=== PATIENT | female | born 1995 | race Caucasian/White ===

== ENCOUNTER 2018-11-02 23:34 | Emergency (ER) | payer OTHER ==
[2018-11-02 23:39] VITALS: BP 143/81; PULSE 76; TEMP 98.2; BMI 33.2
[2018-11-03 01:18] LABS: BASO % 0.6 % (0-2.0); HEMATOCRIT 35.8 % (32.4-45.2); HEMOGLOBIN 12.3 GM/dL (10.7-15.3); MCH 29.7 pg (25.7-33.7); MCHC 34.3 g/dl (32.0-36.0); MEAN CELL VOLUME 86.5 fl (80-96); MEAN PLT VOLUME 8.4 fl (7.5-11.1); MONO % 7.8 % (3.8-10.2); NEUT % 55.6 % (42.8-82.8); PLATELET COUNT 274 K/MM3 (134-434); RBC 4.13 M/mm3 (3.60-5.2); WHITE BLOOD COUNT 7.4 K/mm3 (4.0-10.0)
--- NOTE | 2018-11-03 01:43 | PDOC ---
Documentation entered by Mark Fernández SCRIBE, acting as scribe for Adriana Interiano MD. Adriana Interiano MD: This documentation has been prepared by the Pradeep castellano Xhesika, SCRIBE, under my direction and personally reviewed by me in its entirety. I confirm that the documentation accurately reflects all work, treatment, procedures, and medical decision making performed by me. Attending Attestation - Resident Resident Name: BrianpatitoHenry - ED Attending Attestation I have performed the following: I have examined & evaluated the patient, The case was reviewed & discussed with the resident, I agree w/resident's findings & plan - HPI HPI: 11/03/18 00:56 The patient is a 23 year old female, , 3 months , with no significant past medical history who presents to the ED with onset vaginal bleeding. The patient states she is endorsing some back pain. The patient states she had preeclampsia that resulted in a last . The patient denies chest pain, shortness of breath or dizziness. The patient denies fever, chills, nausea, diarrhea or constipation. The patient denies dysuria, frequency, urgency. Allergy: NKDA Surgical History: Social History: None reported - Physicial Exam PE: 11/03/18 00:59 GENERAL: The patient is in no acute distress. HEAD: Normal with no signs of trauma. EYES: PERRLA, EOMI, sclera anicteric, conjunctiva clear. ENT: Ears normal, nares patent, oropharynx clear without exudates. Moist mucous membranes. NECK: Normal range of motion, supple without lymphadenopathy, JVD, or masses. LUNGS: Breath sounds equal, clear to auscultation bilaterally. No wheezes, and no crackles. HEART:Regular rate and rhythm, normal S1 and S2 without murmur, rub or gallop. ABDOMEN: Soft, nontender, normoactive bowel sounds. No guarding, no rebound. No masses palpable. EXTREMITIES: Normal range of motion, no edema. No clubbing or cyanosis. No erythema, or tenderness. PELVIC: (+) cervical os closed. (+) small amount of blood seen. NEUROLOGICAL: Cranial nerves II through XII grossly intact. Normal speech. No focal neurological deficits. MUSCULOSKELETAL: Back non-tender to palpation, no CVA tenderness SKIN: Warm, Dry, normal turgor, no rashes or lesions noted. - Medical Decision Making 11/03/18 02:27 Patient Name: SARAH MILLER THIS IS A PRELIMINARY REPORT FROM [facility] DATE OF SERVICE: 2018-11-03 01:09:17 IMAGES: 44 EXAM: Ultrasound and pelvic duplex HISTORY: Bleeding COMPARISON: None. FINDINGS: Ultrasound :Uterus is anteverted and measures 12.7centimeters in length. There is a single live IUP with estimated gestational age of 12weeks and zerodays. There is a normal heart rate of 171beats per minute. There is no subchorionic bleed. The right ovary measures 2.2centimeters in length and appears normal. The left ovary measures 5 pointcentimeters in length and appears normal. There is no significant free fluid. Pelvic duplex: There is normal arterial and venous flow in both ovaries. IMPRESSION: Live IUP with estimated age 12 weeks zero days without definite abnormalities. 11/03/18 05:23 Stable for d/c home 11/03/18 05:23 UA not sent; no dysuria and pt will follow with her TERMITE HELPER
[2018-11-03 01:47] LABS: INR 0.96 (0.83-1.09); PROTHROMBIN TIME (PATIENT) 11.3 SEC (9.7-13.0)
[2018-11-03 02:15] LABS: ALBUMIN 3.8 g/dl (3.4-5.0); BILIRUBIN,TOTAL 0.3 mg/dL (0.2-1); CALCIUM 8.7 mg/dL (8.5-10.1); CREATININE 0.3 mg/dL (0.55-1.3); POTASSIUM 3.6 mmol/L (3.5-5.1)
--- NOTE | 2018-11-03 02:30 | PDOC ---
History of Present Illness - General Chief Complaint: Vaginal Bleeding Stated Complaint: VAGINAL BLEEDING/3 MONTHS Time Seen by Provider: 11/03/18 00:11 History Source: Patient Exam Limitations: Language Barrier (Phone int used) - History of Present Illness Initial Comments: 11/03/18 02:31 Patient is a 23F who is 3 months by dates here today complaining of vaginal bleeding that started today and lasted for about thirty minutes. Patient has not had any care prior to today. Denies fevers, chills, nausea, vomiting. Denies abdominal pain, shortness of breath and chest pain. Denies vaginal pain, history of stds. Has not had prior ultrasound or medical care for this . Past History - Past Medical History Allergies/Adverse Reactions: Allergies Allergy/AdvReac Type Severity Reaction Status Date / Time No Known Allergies Allergy Verified 03/29/16 18:54 Home Medications: Ambulatory Orders Iron 1 tab PO DAILY 03/29/16 Vitamins (Sjr) - 1 tab PO DAILY 03/29/16 Ibuprofen [Motrin -] 600 mg PO QID #28 tablet 04/02/16 Asthma: No Cancer: No Cardiac Disorders: No COPD: No Diabetes: No HTN: No Seizures: No Thyroid Disease: No - Immunization History Immunization Up to Date: Yes - Suicide/Smoking/Psychosocial Hx Smoking History: Unknown if ever smoked Have you smoked in the past 12 months: No Information on smoking cessation initiated: No Hx Alcohol Use: No Drug/Substance Use Hx: No Hx Substance Use Treatment: No Review of Systems - Review of Systems Able to Perform ROS?: Yes Comments:: 11/03/18 02:32 GENERAL/CONSTITUTIONAL: No fever or chills. No weakness. HEAD, EYES, EARS, NOSE AND THROAT: No change in vision. No sore throat. CARDIOVASCULAR: No chest pain or shortness of breath RESPIRATORY: No cough, wheezing, or hemoptysis. GASTROINTESTINAL: No nausea, vomiting, diarrhea or constipation. GENITOURINARY: No dysuria, frequency, or change in urination. MUSCULOSKELETAL: No joint or muscle swelling or pain. No neck or back pain. SKIN: No rash NEUROLOGIC: No headache, vertigo, loss of consciousness, or change in strength/ sensation. HEMATOLOGIC/LYMPHATIC: No anemia, easy bleeding, or history of blood clots. *Physical Exam - Vital Signs Last Vital Signs Temp Pulse Resp BP Pulse Ox 98.2 F 76 16 143/81 100 11/02/18 23:36 11/02/18 23:36 11/02/18 23:36 11/02/18 23:36 11/02/18 23:36 - Physical Exam Comments: 11/03/18 02:33 GENERAL: Awake, alert, and fully oriented, in no acute distress PELVIC: Small amount of blood in vaginal vault, no cmt, no adnexal tenderness/ masses. HEAD: No signs of trauma, normocephalic, atraumatic EYES: PERRLA, EOMI, sclera anicteric, conjunctiva clear ENT: Auricles normal inspection, hearing grossly normal, nares patent, oropharynx clear without exudates. Moist mucosa NECK: Normal ROM, supple, no lymphadenopathy, JVD, or masses LUNGS: No distress, speaks full sentences, clear to auscultation bilaterally HEART: Regular rate and rhythm, normal S1 and S2, no murmurs, rubs or gallops, peripheral pulses normal and equal bilaterally. ABDOMEN: Nontender, normoactive bowel sounds. No guarding, no rebound. No masses EXTREMITIES: Normal inspection, Normal range of motion, no edema. No clubbing or cyanosis. NEUROLOGICAL: Cranial nerves II through XII grossly intact. Normal speech, normal gait, no focal sensorimotor deficits SKIN: Warm, Dry, normal turgor, no rashes or lesions noted. ED Treatment Course - LABORATORY CBC & Chemistry Diagram: 11/03/18 01:05 11/03/18 01:05 - ADDITIONAL ORDERS Additional order review: Laboratory Results 11/03/18 11/03/18 11/03/18 01:05 01:05 01:05 PT with INR 11.30 INR 0.96 Sodium 135 L Potassium 3.6 Chloride 109 H Carbon Dioxide 20 L Anion Gap 6 L BUN 9 Creatinine 0.3 L Est GFR (CKD-EPI)AfAm 187.05 Est GFR (CKD-EPI)NonAf 161.39 Random Glucose 85 Calcium 8.7 Total Bilirubin 0.3 AST 18 ALT 36 Alkaline Phosphatase 49 Total Protein 7.0 Albumin 3.8 Beta HCG, Quant 10458.4 Blood Type O POSITIVE Antibody Screen Negative 11/03/18 01:05 RBC 4.13 MCV 86.5 MCHC 34.3 RDW 14.0 D MPV 8.4 Neutrophils % 55.6 D Lymphocytes % 33.0 D Monocytes % 7.8 Eosinophils % 3.0 D Basophils % 0.6 - RADIOLOGY Radiology Studies Ordered: Category Date Time Status PELVIC / BLADDER US [US] Stat Ultrasound 11/03/18 00:36 Taken Medical Decision Making - Medical Decision Making 11/03/18 02:34 Patient is 23F here today with likely threatened . Vitals normal and stable. Will workup with cbc, cmp, type and screen, pt/inr, beta quant, us. CBC normal. CMP normal. Beta 40k US shows normal IUP at [id number], no abnormalities. Will discharge with return precautions and obgyn referral. *DC/Admit/Observation/Transfer Diagnosis at time of Disposition: Threatened - Discharge Dispostion Disposition: HOME Condition at time of disposition: Good Decision to Admit order: No - Referrals Referrals: Hedy Ornelas MD [Staff Physician] - - Patient Instructions Printed Discharge Instructions: DI for Threatened Additional Instructions: Please follow up with the OBGYN doctor below this week. Please return if you have any new, worsening or concerning symptoms, especially increasing pain, fever or bleeding. Por favor josefina un seguimiento con el doctor OBGYN a continuacin esta semana. Regrese si tiene algn sntoma nuevo, que empeora o que se relaciona con l, especialmente el aumento de dolor, fiebre o sangrado. Print Language: SETSWANA - Post Discharge Activity
== END 2018-11-03 02:47 | disposition home or self-care (01) ==
LOC: JER 23:34
DX: O26.891 Other specified pregnancy related conditions, first trimester (principal); Z3A.12 12 weeks gestation of pregnancy; O20.0 Threatened abortion
CPT/HCPCS: 36415; 76856-TC; 80053; 84702; 85025; 85610; 86850; 86900; 86901; 99281-25

== ENCOUNTER 2019-04-29 09:00 | Inpatient (IN) | payer OTHER ==
[2019-04-29] MEDS ORDERED: CITRIC ACID/SODIUM CITRATE 30 ML UNIT-DOSE CUP PO ONE (09:36)
--- NOTE | 2019-04-29 09:44 | HP ---
Past Medical History - Primary Care Physician PCP:: Heladio Hoover - Admission Chief Complaint: 37.2 weeks, rom, meconium AF, previuos c/s. pih, labor,request of c/s History of Present Illness: 23 yo f g 2 p1001 ,37.2 weeks with previous c/s for PIH , c/o rom since this am, with contraction q 2 to 4 min, bp 142/96, no headache, no blurred vision, cx 1 cm 50 vx -3 mr, meconium AF , requesting repeat c/s History Source: Patient Limitations to Obtaining History: No Limitations - Past Surgical History Past Surgical History: Yes: Hx Myomectomy: No Hx Transabdominal Cerclage: No - Smoking History Smoking history: Unknown if ever smoked Have you smoked in the past 12 months: No - Alcohol/Substance Use Hx Alcohol Use: No - Social History Usual Living Arrangement: Yes: With Spouse History of Recent Travel: No Home Medications - Allergies Allergies/Adverse Reactions: Allergies Allergy/AdvReac Type Severity Reaction Status Date / Time No Known Allergies Allergy Verified 04/29/19 09:36 - Home Medications Home Medications: Ambulatory Orders Pnv No.95/Ferrous Fum/Folic AC [ Vitamin Tablet] 1 each PO DAILY Review of Systems - Review of Systems Constitutional: reports: No Symptoms Eyes: reports: No Symptoms HENT: reports: No Symptoms Neck: reports: No Symptoms Cardiovascular: reports: No Symptoms Respiratory: reports: No Symptoms Gastrointestinal: reports: No Symptoms Genitourinary: reports: No Symptoms Breasts: reports: No Symptoms Reported Musculoskeletal: reports: No Symptoms Neurological: reports: No Symptoms Endocrine: reports: No Symptoms Hematology/Lymphatic: reports: No Symptoms Psychiatric: reports: No Symptoms Physical Exam - Maternity Constitutional: Yes: Well Nourished, No Distress, Calm Eyes: Yes: WNL, Conjunctiva Clear, EOM Intact HENT: Yes: WNL, Atraumatic, Normocephalic Neck: Yes: WNL, Supple, Trachea Midline Cardiovascular: Yes: WNL, Regular Rate and Rhythm Breast(s): Yes: WNL - Abdominal Exam/OB Fundal Height: 36 Number of Fetuses: Single Presentation: Vertex Contractions: Yes Regularity: Regular Intensity: Mod/Strong Monitor Mode: External Heart Rate Location: [facility] Category: I Accelerations: Non-Uniform Decelerations: None - Vaginal Exam/OB Vaginal Bleediing: No Dilatation (cm): 1 Effacement (%): 50 Amniotic Membrane Status: Ruptured Nitrazine Test: Positive Meconium: Moderate Station: -3 - Physical Exam Musculoskeletal: Yes: WNL Extremities: Yes: WNL Edema: LLE: 1+, RLE: 1+ Deep Tendon Reflex Grade: Normal +2 ...Motor Strength: WNL Psychiatric: Yes: WNL Hemorrhage Risk Assessment - Risk Factors Medium Risk Factors: Yes: None Risk Score: 1 Risk Level: Medium Risk Problem List - Problems (1) with 37 weeks completed gestation Code(s): Z3A.37 - 37 WEEKS GESTATION OF
[2019-04-29] MEDS ORDERED: ELECTROLYTE-148 SOLN 1,000 ML IV SCH (09:45)
[2019-04-29 09:59] VITALS: BMI 32.5
[2019-04-29 10:28] LABS: BASO % 0.3 % (0-2.0); EOS % 0.2 % (0-4.5); HEMATOCRIT 29.4 % (32.4-45.2); HEMOGLOBIN 9.6 GM/dL (10.7-15.3); LYMPH % 14.5 % (8-40); MCHC 32.8 g/dl (32.0-36.0); MEAN CELL VOLUME 76.2 fl (80-96); MEAN PLT VOLUME 9.8 fl (7.5-11.1); MONO % 5.1 % (3.8-10.2); NEUT % 79.9 % (42.8-82.8); PLATELET COUNT 216 K/MM3 (134-434); RBC 3.86 M/mm3 (3.60-5.2); RDW 16.9 % (11.6-15.6); WHITE BLOOD COUNT 8.2 K/mm3 (4.0-10.0)
[2019-04-29] MEDS ORDERED: LABETALOL HCL 200 MG TABLET (FP) PO ONE (10:31)
[2019-04-29] MEDS ORDERED: LABETALOL HCL 200 MG TABLET (FP) ONE (10:34)
[2019-04-29 10:43] LABS: INR 0.83 (0.83-1.09); PROTHROMBIN TIME (PATIENT) 9.8 SEC (9.7-13.0)
[2019-04-29 10:46] LABS: ACTIVATED PTT 26.5 SECONDS (25.2-36.5)
[2019-04-29 10:55] LABS: GAMMA GLUTAMYL TRANSPEPTIDASE 16 U/L (5-85); SGOT/AST 25 U/L (15-37); SGPT/ALT 17 U/L (13-61)
[2019-04-29 10:56] LABS: BLOOD UREA NITROGEN 15.3 mg/dL (7-18); CALCIUM 7.9 mg/dL (8.5-10.1); CREATININE 0.5 mg/dL (0.55-1.3); URIC ACID 6.4 mg/dL (2.6-7.2)
[2019-04-29] MEDS ORDERED: ONDANSETRON 4 MG/2 ML VIAL IVPUSH PRN (11:34)
[2019-04-29] MEDS ORDERED: OXYTOCIN 20 UNITS in 0.9% NS 20 UNIT/1,000 ML INFUS.BAG IV ONE ×2 (11:35→13:19)
[2019-04-29] MEDS ORDERED: ePHEDrine SULFATE 50 MG/1 ML AMPULE ONE (11:37)
[2019-04-29] MEDS ORDERED: morphine SULFATE/PF 0.5 MG/ML (2cc Syringe - QUVA) ONE (11:37)
[2019-04-29 11:38] LABS: EPI CELLS 7.2 /HPF (0-5/HPF); HYALINE CASTS 32 /lpf (0-8); URINE APPEARANCE CLEAR; URINE BACTERIA 13.2 /hpf (NEGATIVE); URINE BILIRUBIN NEGATIVE (NEGATIVE); URINE COLOR YELLOW; URINE GLUCOSE (UA) NEGATIVE (NEGATIVE); URINE KETONE NEGATIVE (NEGATIVE); URINE LEUK ESTERASE NEGATIVE (NEGATIVE); URINE NITRITE NEGATIVE (NEGATIVE); URINE PROTEIN 3+ (NEGATIVE); URINE RBC 42 /hpf (0-4); URINE WBC 1 /hpf (0-5)
[2019-04-29] MEDS ORDERED: ceFAZolin SODIUM 1 GM VIAL ONE (11:46)
[2019-04-29] MEDS ORDERED: METHYLERGONOVINE MALEATE 0.2 MG/1 ML AMP IM PRN (12:36)
[2019-04-29] MEDS ORDERED: BENZOCAINE 28 GM HEMORRHOIDAL OINTMENT PR PRN (12:36)
[2019-04-29] MEDS ORDERED: BENZOCAINE 20% 57 GM BOTTLE TP PRN (12:36)
[2019-04-29] MEDS ORDERED: IBUPROFEN 800 MG/8 ML IJ IVPB PRN (12:36)
[2019-04-29] MEDS ORDERED: diphenhydrAMINE HCL 25 MG CAPSULE (FP) PO PRN (12:36)
[2019-04-29] MEDS ORDERED: WITCH HAZEL 50% (TUCKS) 40 PAD/JAR PAD TP PRN (12:36)
[2019-04-29] MEDS ORDERED: oxyCODONE HCL 5 MG TABLET PO PRN (12:36)
--- NOTE | 2019-04-29 12:43 | OP ---
Operative Note - Note: Operative Date: 04/29/19 Pre-Operative Diagnosis: 37 weeks, previous c/s, PIH, rom, labor , meconium Operation: repeat LST c/s Findings: live baby b0y 9/9. LOT . cord around neck once. mec af Surgeon: Heladio Hoover Beater Room Supervisor: Aldo Fisher Anesthesiologist/INFORMATION SECURITY ANALYST: Kevin Alcazar Anesthesia: Spinal Specimens Removed: placenta Estimated Blood Loss (mls): 500 Drains & Tubes with Location: lópez Blood Volume Replaced (mls): 0 Operative Report Dictated: Yes
[2019-04-29] MEDS ORDERED: OXYTOCIN 20 UNITS in 0.9% NS 20 UNIT/1,000 ML INFUS.BAG IV SCH (12:45)
[2019-04-29] MEDS ORDERED: DEXTROSE 5%-LACTATED RINGERS 1,000 ML IV SCH (12:45)
--- NOTE | 2019-04-29 13:19 | OP ---
DATE OF OPERATION: 04/29/2019 PREOPERATIVE DIAGNOSIS: 37 weeks, ruptured membranes, meconium amniotic fluid, previous section, -induced hypertension. POSTOPERATIVE DIAGNOSIS: 37 weeks, ruptured membranes, meconium amniotic fluid, previous section, -induced hypertension. PROCEDURE: Repeat low segment transverse section. SURGEON: Heladio Hoover MD AUTOMOTIVE DETAILER: BUSTER Solano ANESTHESIA: Spinal. ANESTHESIOLOGIST: Kevin Alcazar DO ESTIMATED BLOOD LOSS: 500 mL. FINDINGS: A live baby. Apgars 9, 9. LOT position. Cord around the neck. DESCRIPTION OF PROCEDURE: Patient was taken to the operating room under adequate spinal anesthesia. Abdomen and perineum were prepped and draped. Pfannenstiel abdominal skin incision was made over the previous incision. Abdominal wall was cut layer by layer until the peritoneum was exposed and incised. Upon entering the abdominal cavity, lower uterine segment was identified and uterovesical fold of peritoneum established. Bladder was pushed down. Then with the lower blade of the Narinder retractor in the pelvis, a low transverse uterine incision was made. Incision extended laterally with bandage scissors. Amniotic sac was entered. Meconium amniotic fluid noted. Head delivered from left occiput posterior position. Cord around the neck x1 reduced. Live baby was delivered without any difficulty. Apgars 9, 9. Placenta was delivered manually. Uterine cavity was cleaned of all remaining tissue. Uterine incision was closed in 2 layers, 1st layer with 0 Biosyn continuous suture, the 2nd layer with 0 Biosyn imbricating the 1st layer. Bladder flap was closed with 0 Biosyn continuous suture. Both tubes and ovaries were checked and were normal. No active bleeding was seen. All of the lap pad, sponge, and instrument counts were correct. Then peritoneum was closed with 0 Biosyn continuous suture. Muscles were brought together with interrupted sutures of 0 Biosyn, fascia was closed with 0 Biosyn continuous suture, subcutaneous fat interrupted suture of 0 Biosyn, and the skin was closed with katt. Patient tolerated the procedure well and left the OR in good condition. Zeinab [id number]
[2019-04-29] MEDS: CEFAZOLIN 1 GM/D5W 1 GM/50 ML BAG IVPB SCH (18:09)
[2019-04-30] MEDS: CEFAZOLIN 1 GM/D5W 1 GM/50 ML BAG IVPB SCH (01:29)
[2019-04-30] MEDS: SIMETHICONE 80 MG TAB.CHEW (FP) PO PRN ×4 (06:22→21:18)
[2019-04-30] MEDS: oxyCODONE HCL 5 MG TABLET PO PRN ×3 (06:24→21:16)
[2019-04-30 07:18] LABS: BASO % 0.3 % (0-2.0); EOS % 0.1 % (0-4.5); HEMATOCRIT 26.1 % (32.4-45.2); HEMOGLOBIN 8.5 GM/dL (10.7-15.3); LYMPH % 11.8 % (8-40); MCH 25.1 pg (25.7-33.7); MCHC 32.8 g/dl (32.0-36.0); MEAN CELL VOLUME 76.5 fl (80-96); MEAN PLT VOLUME 9.4 fl (7.5-11.1); MONO % 6.2 % (3.8-10.2); NEUT % 81.6 % (42.8-82.8); PLATELET COUNT 203 K/MM3 (134-434); RDW 17.1 % (11.6-15.6); WHITE BLOOD COUNT 9.4 K/mm3 (4.0-10.0)
--- NOTE | 2019-04-30 08:29 | PN ---
Post Progress Note - Subjective Subjective: no c/o headache pain scale 7/10 not voided since catheter is taken out Post Day: 1 Type of Delivery: Repeat C/S Vital Signs: Vital Signs Temperature 99.1 F 04/30/19 06:00 Pulse Rate 74 04/30/19 06:00 Respiratory Rate 18 04/30/19 06:00 Blood Pressure 133/75 04/30/19 06:00 O2 Sat by Pulse Oximetry (%) 100 04/29/19 13:30 Selected Entries 04/29/19 04/30/19 04/30/19 22:00 01:34 06:00 Blood Pressure 129/89 126/85 133/75 Breast Exam: Yes: Soft, Other (attempting BF ). No: Engorged Uterus: Yes: Fundus Firm, Fundus below umbilicus, Non-tender Incision: Yes: Dressing dry and intact. No: Oozing Abdomen/GI: Yes: Abdomen soft, Tolerating PO (clear fluids ). No: Abdominal Distention, Tender, Passing flatus Lochia: Yes: Rubra Lochia, amount: Moderate Extremities: Yes: Calves non-tender, Edema Perineum: Yes: Intact Activity: Other (not oob yet ) - Labs Labs: CBC WBC 9.4 K/mm3 (4.0-10.0) 04/30/19 07:00 RBC 3.40 M/mm3 (3.60-5.2) L 04/30/19 07:00 Hgb 8.5 GM/dL (10.7-15.3) L 04/30/19 07:00 Hct 26.1 % (32.4-45.2) L 04/30/19 07:00 MCV 76.5 fl (80-96) L 04/30/19 07:00 MCH 25.1 pg (25.7-33.7) L 04/30/19 07:00 MCHC 32.8 g/dl (32.0-36.0) 04/30/19 07:00 RDW 17.1 % (11.6-15.6) H 04/30/19 07:00 Plt Count 203 K/MM3 (134-434) 04/30/19 07:00 MPV 9.4 fl (7.5-11.1) 04/30/19 07:00 Absolute Neuts (auto) 7.7 K/mm3 (1.5-8.0) 04/30/19 07:00 Neutrophils % 81.6 % (42.8-82.8) 04/30/19 07:00 Lymphocytes % 11.8 % (8-40) 04/30/19 07:00 Monocytes % 6.2 % (3.8-10.2) 04/30/19 07:00 Eosinophils % 0.1 % (0-4.5) 04/30/19 07:00 Basophils % 0.3 % (0-2.0) 04/30/19 07:00 Nucleated RBC % 0 % (0-0) 04/30/19 07:00 Retic Count 2.38 % (0.5-1.5) H 04/29/19 09:42 Haptoglobin 93 mg/dL (34-200) 04/29/19 09:42 Other Findings, Remarks: i/o 1750/700 RS :CTA Problem List - Problems (1) examination following delivery Code(s): Z39.2 - ENCOUNTER FOR ROUTINE FOLLOW-UP Assessment/Plan stable , anemia post op . BP under control , did not reqiure any po Labetalol plan ct po care encourage ambulation
[2019-04-30 08:47] LABS: POC NITRAZINE POS
[2019-04-30] MEDS: ENOXAPARIN NA (PORCINE) 40 MG/0.4 ML DISP.SYRIN SQ SCH (09:48)
[2019-04-30] MEDS: ACETAMINOPHEN 325 MG TABLET (FP) PO PRN ×2 (12:16→21:15)
[2019-04-30] MEDS ORDERED: BISACODYL 10 MG SUPP.RECT PR PRN (12:36)
[2019-04-30] MEDS: LABETALOL HCL 200 MG TABLET (FP) PO PRN (13:23)
--- NOTE | 2019-04-30 14:40 | PN ---
Progress Note (short form) - Note Progress Note: Anesthesia POD#1 S/P Repeat under Spinal and Duramorph VSS,no N/V,no pain,legs fully recovered. Xuan Riddle MD.
[2019-05-01] MEDS: LABETALOL HCL 200 MG TABLET (FP) PO PRN ×3 (00:36→21:06)
[2019-05-01] MEDS: SIMETHICONE 80 MG TAB.CHEW (FP) PO PRN ×2 (06:21→10:11)
[2019-05-01] MEDS: oxyCODONE HCL 5 MG TABLET PO PRN ×3 (06:21→19:52)
[2019-05-01] MEDS: ACETAMINOPHEN 325 MG TABLET (FP) PO PRN ×2 (06:22→19:52)
--- NOTE | 2019-05-01 09:17 | PN ---
Post Progress Note - Subjective Subjective: Pain controlled. Voiding freely. Ambulating w/o difficulty. Type of Delivery: Repeat C/S Vital Signs: Vital Signs Temperature 98.8 F 05/01/19 06:38 Pulse Rate 72 05/01/19 06:38 Respiratory Rate 18 05/01/19 06:38 Blood Pressure 138/74 05/01/19 06:38 O2 Sat by Pulse Oximetry (%) 100 04/29/19 13:30 Breast Exam: Yes: Soft Uterus: Yes: Fundus Firm, Fundus below umbilicus Incision: Yes: Dressing dry and intact, Burns intact Abdomen/GI: Yes: Abdomen soft, Tolerating PO Lochia: Yes: Rubra Lochia, amount: Small Extremities: Yes: Calves non-tender Perineum: Yes: Intact Activity: Ambulating - Labs Labs: CBC WBC 9.4 K/mm3 (4.0-10.0) 04/30/19 07:00 RBC 3.40 M/mm3 (3.60-5.2) L 04/30/19 07:00 Hgb 8.5 GM/dL (10.7-15.3) L 04/30/19 07:00 Hct 26.1 % (32.4-45.2) L 04/30/19 07:00 MCV 76.5 fl (80-96) L 04/30/19 07:00 MCH 25.1 pg (25.7-33.7) L 04/30/19 07:00 MCHC 32.8 g/dl (32.0-36.0) 04/30/19 07:00 RDW 17.1 % (11.6-15.6) H 04/30/19 07:00 Plt Count 203 K/MM3 (134-434) 04/30/19 07:00 MPV 9.4 fl (7.5-11.1) 04/30/19 07:00 Absolute Neuts (auto) 7.7 K/mm3 (1.5-8.0) 04/30/19 07:00 Neutrophils % 81.6 % (42.8-82.8) 04/30/19 07:00 Lymphocytes % 11.8 % (8-40) 04/30/19 07:00 Monocytes % 6.2 % (3.8-10.2) 04/30/19 07:00 Eosinophils % 0.1 % (0-4.5) 04/30/19 07:00 Basophils % 0.3 % (0-2.0) 04/30/19 07:00 Nucleated RBC % 0 % (0-0) 04/30/19 07:00 Retic Count 2.38 % (0.5-1.5) H 04/29/19 09:42 Haptoglobin 93 mg/dL (34-200) 04/29/19 09:42 Assessment/Plan 23yo s/p RLTCS, POD#2 Routine PP care OOB, ambulate Labs reviewed BPs stable D/C to home POD#4 Jhony Fish MD
[2019-05-01] MEDS: ENOXAPARIN NA (PORCINE) 40 MG/0.4 ML DISP.SYRIN SQ SCH (10:09)
[2019-05-01] MEDS ORDERED: SENNOSIDES/DOCUSATE COMBO (SENNA PLUS) TABLET (UD) PO PRN (22:00)
[2019-05-02] MEDS: IBUPROFEN 600 MG TABLET (FP) PO PRN ×4 (03:15→18:16)
[2019-05-02] MEDS: LABETALOL HCL 200 MG TABLET (FP) PO PRN ×2 (03:15→09:32)
[2019-05-02] MEDS: ACETAMINOPHEN 325 MG TABLET (FP) PO PRN ×4 (03:16→18:16)
[2019-05-02 07:23] LABS: BASO % 0.5 % (0-2.0); EOS % 1.5 % (0-4.5); HEMOGLOBIN 8.6 GM/dL (10.7-15.3); LYMPH % 16.5 % (8-40); MCH 25.2 pg (25.7-33.7); MCHC 33.2 g/dl (32.0-36.0); MONO % 5.9 % (3.8-10.2); NEUT % 75.6 % (42.8-82.8); PLATELET COUNT 273 K/MM3 (134-434); RBC 3.43 M/mm3 (3.60-5.2); RDW 17.2 % (11.6-15.6); WHITE BLOOD COUNT 7.9 K/mm3 (4.0-10.0)
--- NOTE | 2019-05-02 08:21 | PN ---
Progress Note (short form) - Note Progress Note: pod 3 , s/p repeat c/s , PIH , reciving labeatalol no headache, no pain,no dizziness CBC, BMP 05/02/19 07:00 04/29/19 09:42 Last Vital Signs Temp Pulse Resp BP Pulse Ox 98.3 F 74 18 130/64 100 05/02/19 06:47 05/02/19 06:47 05/02/19 06:47 05/02/19 06:47 04/29/19 13:30 abdomen soft, no distension , no cva incision dry, clean no calf tenderness plan ambulate pain management renal consult for HTN Problem List - Problems (1) with 37 weeks completed gestation Code(s): Z3A.37 - 37 WEEKS GESTATION OF
[2019-05-02] MEDS: SIMETHICONE 80 MG TAB.CHEW (FP) PO PRN (09:32)
[2019-05-02] MEDS: ENOXAPARIN NA (PORCINE) 40 MG/0.4 ML DISP.SYRIN SQ SCH (09:33)
--- NOTE | 2019-05-02 13:10 | CONSULT ---
Consult - text type - Consultation Consultation Note: Renal consult for hypertension This is a 23 year old woman with no significant past medical history who presented at 37 week gestation with hypertension now s/p with hypertension. Pt reports having hypertension with her previous but says she was not on medications. She denies any headache, chest pain, blurry vision, abdominal pain, nausea or vomiting. No fever or chills. Has been on Labetalol but BP remains high. Urine studies show proteinuria. PMHx: as above Allergies: NKDA Family Hx: NC Social Hx: No T/A/D ROS: as per HPI Home Medications Medication Instructions Recorded Pnv No.95/Ferrous Fum/Folic AC 1 each PO DAILY 04/29/19 [ Vitamin Tablet] Ibuprofen 600 mg PO Q6H PRN #30 tablet 05/02/19 Labetalol HCl 100 mg PO BID #60 tablet 05/02/19 Oxycodone HCl/Acetaminophen 1 - 2 tab PO Q6H PRN #30 tab MDD 4 05/02/19 [Percocet 5-325 mg Tablet -] Vital Signs Temperature 98.5 F 05/02/19 09:58 Pulse Rate 73 05/02/19 09:58 Respiratory Rate 20 05/02/19 09:58 Blood Pressure 153/77 05/02/19 09:58 O2 Sat by Pulse Oximetry (%) 100 04/29/19 13:30 NAD awake and alert + edema in LE CBC, BMP 05/02/19 07:00 04/29/19 09:42 Current Medications Acetaminophen (Tylenol -) 650 mg PO Q6H PRN PRN Reason: PAIN LEVEL 4 - 6 Last Admin: 05/02/19 09:32 Dose: 650 mg Benzocaine (Americaine 20% [place] -) 1 spray TP PRN PRN PRN Reason: Pain - Topical Benzocaine (Americaine Ointment -) 1 applic MA PRN PRN PRN Reason: Pain - Topical Bisacodyl (Dulcolax Suppository -) 10 mg MA PRN PRN PRN Reason: CONSTIPATION Diphenhydramine HCl (Benadryl Injection -) 25 mg IVPUSH Q4H PRN PRN Reason: Pruritis Diphenhydramine HCl (Benadryl -) 25 mg PO Q8H PRN PRN Reason: FOR ITCHING Enoxaparin Sodium (Lovenox -) 40 mg SQ DAILY [facility] Last Admin: 05/02/19 09:33 Dose: 40 mg Parenteral Electrolytes (Plasma-Lyte 148 -) 1,000 mls @ 125 mls/hr IV ASDIR [facility] Last Admin: 04/29/19 09:45 Dose: 125 mls/hr Dextrose/Lactated Ringer's (D5-Lr -) 1,000 mls @ 125 mls/hr IV ASDIR [facility] Last Admin: 04/29/19 15:26 Dose: Not Given Oxytocin/Sodium Chloride (Normal Saline+20 Units Oxytocin -) 20 unit in 1,000 mls @ 125 mls/hr IV ASDIR [facility] Last Admin: 04/29/19 15:26 Dose: Not Given Ibuprofen (Motrin -) 600 mg PO Q4H PRN PRN Reason: PAIN LEVEL 1 - 3 Last Admin: 05/02/19 09:33 Dose: 600 mg Ibuprofen (Caldolor Injection -) 800 mg IVPB Q6H PRN PRN Reason: PAIN > 5 if PO not effective. Labetalol HCl (Normodyne -) 200 mg PO Q6H PRN PRN Reason: HYPERTENSION Last Admin: 05/02/19 09:32 Dose: 200 mg Methylergonovine Maleate (Methergine Injection -) 0.2 mg IM Q4H PRN PRN Reason: EXCESSIVE BLEEDING Ondansetron HCl (Zofran Injection) 4 mg IVPUSH Q4H PRN PRN Reason: NAUSEA Senna/Docusate Sodium (Pericolace -) 2 tablet PO HS PRN PRN Reason: CONSTIPATION Last Admin: 05/01/19 21:07 Dose: 2 tablet Simethicone (Mylicon -) 80 mg PO Q4H PRN PRN Reason: GAS Last Admin: 05/02/19 09:32 Dose: 80 mg Witch Jesica/Glycerin (Tucks Pads -) 1 pad TP PRN PRN PRN Reason: Pain - Topical 23 year old woman with no significant past medical history who presented at 37 week gestation with hypertension now s/p with hypertension. 1. hypertension 2. Preeclampsia 3. 37 weeks gestation s/p 4. anemia Will start nifedpine ER 30mg daily and change parameters on Labetlaol to be dose for SBP > 160 and DBP > 100. Change diet to low salt diet pain control as needed with an attempt to minimize NSAID use. Trend H/H Marek Johnson DO
[2019-05-02] MEDS ORDERED: LABETALOL HCL 200 MG TABLET (FP) PO PRN (13:15)
[2019-05-02] MEDS: NIFEdipine E.R. 30 MG TABLET (FP) PO SCH (14:54)
[2019-05-03] MEDS: IBUPROFEN 600 MG TABLET (FP) PO PRN (08:04)
[2019-05-03] MEDS: SIMETHICONE 80 MG TAB.CHEW (FP) PO PRN (08:04)
[2019-05-03] MEDS: ACETAMINOPHEN 325 MG TABLET (FP) PO PRN (08:05)
--- NOTE | 2019-05-03 09:19 | PN ---
Progress Note (short form) - Note Progress Note: Renal follow up for hypertension Seen and examined at the bedside awake and alert no acute complaints no chest pain, blurry vision, dizziness Vital Signs Temperature 98.7 F 05/03/19 05:54 Pulse Rate 73 05/03/19 05:54 Respiratory Rate 18 05/03/19 05:54 Blood Pressure 138/73 05/03/19 05:54 O2 Sat by Pulse Oximetry (%) 100 04/29/19 13:30 Intake & Output 04/30/19 05/01/19 05/02/19 05/03/19 23:59 23:59 23:59 23:59 Intake Total 3475 Output Total 2550 Balance 925 NAD trace LE edema CBC, BMP 05/02/19 07:00 04/29/19 09:42 Current Medications Acetaminophen (Tylenol -) 650 mg PO Q6H PRN PRN Reason: PAIN LEVEL 4 - 6 Last Admin: 05/03/19 08:05 Dose: 650 mg Benzocaine (Americaine 20% Willis -) 1 spray TP PRN PRN PRN Reason: Pain - Topical Benzocaine (Americaine Ointment -) 1 applic [place] PRN PRN PRN Reason: Pain - Topical Bisacodyl (Dulcolax Suppository -) 10 mg [place] PRN PRN PRN Reason: CONSTIPATION Diphenhydramine HCl (Benadryl Injection -) 25 mg IVPUSH Q4H PRN PRN Reason: Pruritis Diphenhydramine HCl (Benadryl -) 25 mg PO Q8H PRN PRN Reason: FOR ITCHING Enoxaparin Sodium (Lovenox -) 40 mg SQ DAILY [facility] Last Admin: 05/02/19 09:33 Dose: 40 mg Parenteral Electrolytes (Plasma-Lyte 148 -) 1,000 mls @ 125 mls/hr IV ASDIR [facility] Last Admin: 04/29/19 09:45 Dose: 125 mls/hr Dextrose/Lactated Ringer's (D5-Lr -) 1,000 mls @ 125 mls/hr IV ASDIR [facility] Last Admin: 04/29/19 15:26 Dose: Not Given Oxytocin/Sodium Chloride (Normal Saline+20 Units Oxytocin -) 20 unit in 1,000 mls @ 125 mls/hr IV ASDIR [facility] Last Admin: 04/29/19 15:26 Dose: Not Given Ibuprofen (Motrin -) 600 mg PO Q4H PRN PRN Reason: PAIN LEVEL 1 - 3 Last Admin: 05/03/19 08:04 Dose: 600 mg Ibuprofen (Caldolor Injection -) 800 mg IVPB Q6H PRN PRN Reason: PAIN > 5 if PO not effective. Labetalol HCl (Normodyne -) 200 mg PO Q6H PRN PRN Reason: HYPERTENSION Methylergonovine Maleate (Methergine Injection -) 0.2 mg IM Q4H PRN PRN Reason: EXCESSIVE BLEEDING Nifedipine (Procardia Xl -) 30 mg PO DAILY [facility] Last Admin: 05/02/19 14:54 Dose: 30 mg Ondansetron HCl (Zofran Injection) 4 mg IVPUSH Q4H PRN PRN Reason: NAUSEA Senna/Docusate Sodium (Pericolace -) 2 tablet PO HS PRN PRN Reason: CONSTIPATION Last Admin: 05/01/19 21:07 Dose: 2 tablet Simethicone (Mylicon -) 80 mg PO Q4H PRN PRN Reason: GAS Last Admin: 05/03/19 08:04 Dose: 80 mg Witch Jesica/Glycerin (Tucks Pads -) 1 pad TP PRN PRN PRN Reason: Pain - Topical 23 year old woman with no significant past medical history who presented at 37 week gestation with hypertension now s/p with hypertension. 1. hypertension 2. Preeclampsia 3. 37 weeks gestation s/p 4. anemia BP moderated on Nifedpine ER 30mg can plan to discharge home on Nifedpine ER 30mg Daily advised to monitor BP at home twice a day symptoms of hypotension discussed with the patient office contact information provided, to follow up within 1 week Rx called into [facility]
[2019-05-03] MEDS: ENOXAPARIN NA (PORCINE) 40 MG/0.4 ML DISP.SYRIN SQ SCH (09:58)
[2019-05-03] MEDS: NIFEdipine E.R. 30 MG TABLET (FP) PO SCH (09:58)
--- NOTE | 2019-05-03 11:23 | PN ---
Post Progress Note - Subjective Subjective: no c/o pain max 5/10 no headache Post Day: 4 Type of Delivery: Repeat C/S Vital Signs: Vital Signs Temperature 98.7 F 05/03/19 05:54 Pulse Rate 73 05/03/19 05:54 Respiratory Rate 18 05/03/19 05:54 Blood Pressure 138/73 05/03/19 05:54 O2 Sat by Pulse Oximetry (%) 100 04/29/19 13:30 Breast Exam: Yes: Soft, Other (BF ). No: Engorged Uterus: Yes: Fundus Firm, Fundus below umbilicus Incision: Yes: Mico intact. No: Redness, Oozing Abdomen/GI: Yes: Abdomen soft, Passing flatus (bm done ), Tolerating PO (diet). No: Abdominal Distention, Tender Lochia: Yes: Rubra Lochia, amount: Moderate Extremities: Yes: Calves non-tender Perineum: Yes: Intact Activity: Ambulating - Labs Labs: CBC WBC 7.9 K/mm3 (4.0-10.0) 05/02/19 07:00 RBC 3.43 M/mm3 (3.60-5.2) L 05/02/19 07:00 Hgb 8.6 GM/dL (10.7-15.3) L 05/02/19 07:00 Hct 26.0 % (32.4-45.2) L 05/02/19 07:00 MCV 76.0 fl (80-96) L 05/02/19 07:00 MCH 25.2 pg (25.7-33.7) L 05/02/19 07:00 MCHC 33.2 g/dl (32.0-36.0) 05/02/19 07:00 RDW 17.2 % (11.6-15.6) H 05/02/19 07:00 Plt Count 273 K/MM3 (134-434) D 05/02/19 07:00 MPV 9.0 fl (7.5-11.1) 05/02/19 07:00 Absolute Neuts (auto) 6.0 K/mm3 (1.5-8.0) 05/02/19 07:00 Neutrophils % 75.6 % (42.8-82.8) 05/02/19 07:00 Lymphocytes % 16.5 % (8-40) D 05/02/19 07:00 Monocytes % 5.9 % (3.8-10.2) 05/02/19 07:00 Eosinophils % 1.5 % (0-4.5) D 05/02/19 07:00 Basophils % 0.5 % (0-2.0) 05/02/19 07:00 Nucleated RBC % 0 % (0-0) 05/02/19 07:00 Retic Count 2.38 % (0.5-1.5) H 04/29/19 09:42 Haptoglobin 93 mg/dL (34-200) 04/29/19 09:42 Problem List - Problems (1) examination following delivery Code(s): Z39.2 - ENCOUNTER FOR ROUTINE FOLLOW-UP Assessment/Plan stable bp well controlled with Procadia 30 xl medically cleared by Dr Johnson , meds ordered to pharmacy . anemia counselled discharge today
[2019-05-03 11:49] VITALS: BP 132/82; PULSE 76; TEMP 99
--- NOTE | 2019-05-07 16:44 | PATH ---
Surgical Pathology Report Patient Name: REVA HAMMONDS Med. Rec. #: [id number] /Age/Gender: 1995 (Age: 23) / F Account: [id number] Location: [facility] OBS/COMMERCIAL DRONE PILOT Taken: 04/29/2019 Received: 04/30/2019 Reported: 05/07/2019 Physicians: Heladio Hoover M.D. Specimen(s) Received PLACENTA Clinical History , 37.2 weeks', repeat in labor, SROM Final Diagnosis PLACENTA, SECTION: 509 G THIRD TRIMESTER PLACENTA WITH TRIVASCULAR UMBILICAL CORD, FOCAL INTRAPARENCHYMAL HEMORRHAGE (~ 15% OF PLACENTAL SURFACE), AND PLACENTAL MEMBRANES WITH MECONIUM-LADEN MACROPHAGES. Electronically Signed Amy Alfaro M.D. Gross Description The specimen is received fresh labeled placenta and is a 509 gram, 17.5 x 16.0 x 3.2 cm. placenta with attached membranes and umbilical cord. The attached membranes are quintero green, meconium stained, translucent with focal opacities and insert marginally. The umbilical cord measures 11.5 cm. in length and averages 1.0 cm. in diameter. The cord inserts eccentrically, 3 cm. to the nearest margin. No true knots or strictures are identified. Cut surface of the umbilical cord reveals 3 vessels. The surface is [place] green, meconium stained with minimal fibrin deposition and appropriate caliber vessels. The maternal surface is red-brown with focal defects. Sectioning reveals 2 hemorrhagic intraparenchymal lesions measuring 1.2 and 1.7 cm in greatest dimension. The remaining placental parenchyma is red-brown and spongy. Ecotherapist sections are submitted in 4 cassettes as follows: 1-membrane roll and umbilical cord; 2-3-lesions; 2-ldnw-darfrzecn section of placenta. 05/05/2019 saudi05/05/2019
== END 2019-05-03 14:25 | disposition home or self-care (01) | DRG 540 ==
LOC: JDEL 09:00 → JLDR 09:30 → J3W 14:25
PROVIDERS: ADMIT Obstetrics & Gynecology; ATTEND Obstetrics & Gynecology
PROC: 10D00Z1 Extraction of Products of Conception, Low, Open Approach (ICD-10-PCS; principal; 2019-05-02)
DX: O34.211 Maternal care for low transverse scar from previous cesarean delivery (principal); N85.8 Other specified noninflammatory disorders of uterus; O13.4 Gestational [pregnancy-induced] hypertension without significant proteinuria, complicating childbirth; O99.02 Anemia complicating childbirth; O14.94 Unspecified pre-eclampsia, complicating childbirth; Z3A.37 37 weeks gestation of pregnancy; Z37.0 Single live birth
CPT/HCPCS: 36415; 36600; 80048; 81003; 82803; 82977; 83010; 83986-QW; 84450; 84460; 84550; 85025; 85044; 85610; 85730; 86593; 86850; 86900; 86901; 88307-TC